=== PATIENT | female | born 1950 | race Caucasian/White ===

== ENCOUNTER 2023-07-23 10:46 | Outpatient (RCR) | payer MEDICARE, OTHER, SELFPAY | END 2023-07-23 23:59 | disposition home or self-care (01) | LOC: RPT 10:46 | PROVIDERS: ATTENDING PHYSICIAN Orthopaedic Surgery; PRIMARYCARE PHYSICIAN Family Medicine | DX: Z47.1 Aftercare following joint replacement surgery (principal); Z96.651 Presence of right artificial knee joint; Z73.6 Limitation of activities due to disability; R26.89 Other abnormalities of gait and mobility | CPT/HCPCS: 97010; 97110; 97162 ==

== ENCOUNTER 2023-08-26 13:58 | Outpatient (RCR) | payer MEDICARE, OTHER, SELFPAY | END 2023-08-26 23:59 | disposition home or self-care (01) | LOC: RPT 13:58 | PROVIDERS: ATTENDING PHYSICIAN Orthopaedic Surgery; PRIMARYCARE PHYSICIAN Family Medicine | DX: Z47.1 Aftercare following joint replacement surgery (principal); Z96.651 Presence of right artificial knee joint; Z73.6 Limitation of activities due to disability; R26.89 Other abnormalities of gait and mobility | CPT/HCPCS: 97010; 97110 ==

== ENCOUNTER → 2023-09-01 08:55 | Outpatient (REF) | payer MEDICARE, OTHER, SELFPAY ==
[2023-09-01 11:27] LABS: INR 2.33; PT 25.5 Sec (11.4-14.6)
== END ==
LOC: HWRCS 08:55
PROVIDERS: Internal Medicine Hematology & Oncology; ATTENDING PHYSICIAN Family Medicine
DX: I26.99 Other pulmonary embolism without acute cor pulmonale (principal)
CPT/HCPCS: 36415; 85610; 93306

== ENCOUNTER 2023-09-03 12:45 | Outpatient (RCR) | payer MEDICARE, OTHER, SELFPAY | END 2023-09-15 07:32 | disposition home or self-care (01) | LOC: RPT 12:45 | PROVIDERS: ATTENDING PHYSICIAN Orthopaedic Surgery; PRIMARYCARE PHYSICIAN Family Medicine | DX: Z47.1 Aftercare following joint replacement surgery (principal); Z73.6 Limitation of activities due to disability; R26.89 Other abnormalities of gait and mobility; M25.561 Pain in right knee; Z96.651 Presence of right artificial knee joint | CPT/HCPCS: 97010; 97110 ==

== ENCOUNTER → 2023-09-04 14:48 | Outpatient (REF) | payer MEDICARE, OTHER, SELFPAY | LOC: HWRAD 14:48 | PROVIDERS: ATTENDING PHYSICIAN Family Medicine; REFERRING PHYSICIAN Obstetrics & Gynecology | DX: Z12.31 Encounter for screening mammogram for malignant neoplasm of breast (principal); Z78.0 Asymptomatic menopausal state | CPT/HCPCS: 77063; 77067; 77080 ==

== ENCOUNTER → 2023-09-08 08:55 | Outpatient (REF) | payer MEDICARE, OTHER, SELFPAY ==
[2023-09-08 09:51] LABS: INR 2.59; PT 27.7 Sec (11.4-14.6)
== END ==
LOC: REG 08:55
PROVIDERS: ATTENDING PHYSICIAN Internal Medicine Hematology & Oncology
DX: I26.09 Other pulmonary embolism with acute cor pulmonale (principal)
CPT/HCPCS: 36415; 85610

== ENCOUNTER → 2023-09-15 08:46 | Outpatient (REF) | payer MEDICARE, OTHER, SELFPAY ==
[2023-09-15 09:27] LABS: PT 26.9 Sec (11.4-14.6)
== END ==
LOC: REG 08:46
PROVIDERS: ATTENDING PHYSICIAN Internal Medicine Hematology & Oncology; FAMILY PHYSICIAN Family Medicine
DX: I26.09 Other pulmonary embolism with acute cor pulmonale (principal)
CPT/HCPCS: 36415; 85610

== ENCOUNTER → 2023-09-22 13:59 | Outpatient (REF) | payer MEDICARE, OTHER, SELFPAY ==
[2023-09-22 14:56] LABS: INR 2.31; PT 25.2 Sec (11.4-14.6)
== END ==
LOC: REG 13:59
PROVIDERS: ATTENDING PHYSICIAN Internal Medicine Hematology & Oncology; FAMILY PHYSICIAN Family Medicine
DX: I26.09 Other pulmonary embolism with acute cor pulmonale (principal)
CPT/HCPCS: 36415; 85610

== ENCOUNTER → 2023-09-29 07:39 | Outpatient (REF) | payer MEDICARE, OTHER, SELFPAY ==
[2023-09-29 08:55] LABS: % Basophils 0.6 % (0-2); % Eosinophils 0.2 % (0-6); % Immature Granulocytes 0.2 % (0-0.5); % Lymphocytes 31.2 % (20.5-51.1); % Monocytes 8.5 % (1.7-9.3); % Neutrophils 59.3 % (42.2-75.2); Absolute Lymphocytes 1.6 10^3/uL (1.2-3.4); Absolute Monocytes 0.4 10^3/uL (0.1-0.6); Absolute Neutrophils 3.1 10^3/uL (1.4-6.5); Hematocrit 34.1 % (37.0-47.0); Hemoglobin 11.1 g/dL (12.0-16.0); Mean Corp Hgb Conc. 32.6 g/dL (33.0-37.0); Mean Corpuscular Hgb 29.4 pg (27.0-31.0); Mean Corpuscular Volume 90.5 fL (81.0-99.0); Mean Platelet Volume 9.4 fL (7.4-10.4); Nucleated Red Blood Cells % 0 %; Platelet Count 348 10^3/uL (130-400); Red Blood Cell Count 3.77 10^6/uL (4.20-5.40); Red Cell Dist. Width 13.5 % (11.5-14.5); White Blood Cell Count 5.2 10^3/uL (4.8-10.8)
[2023-09-29 09:04] LABS: ALT (SGPT) 15 U/L (0-35); AST (SGOT) 18 U/L (14-36); Albumin 4.4 g/dl (3.5-5.0); Alkaline Phosphatase 103 U/L (38-126); Blood Urea Nitrogen 14 mg/dl (7-17); Calcium 9.5 mg/dl (8.4-10.2); Carbon Dioxide 28 mmol/L (22-30); Chloride 105 mmol/L (98-107); Glucose 86 mg/dl (70-99); HDL Cholesterol 58 mg/dl; LDL Cholesterol, Calculated 75 mg/dl; Sodium 143 mmol/L (135-145); Total Bilirubin 0.3 mg/dl (0.2-1.3); Total Cholesterol 153 mg/dl (50-199); Total Protein 7.1 g/dl (6.3-8.2); Triglyceride 104 mg/dl (10-149); Very Low Density Lipoprotein 20 mg/dl (0-30); eGFR > 60.00
[2023-09-29 09:10] LABS: INR 2.45; PT 26.5 Sec (11.4-14.6)
[2023-09-29 09:32] LABS: TSH Reflex To Free T4 0.76 uIU/ml (0.47-4.68)
== END ==
LOC: REG 07:39
PROVIDERS: ATTENDING PHYSICIAN Internal Medicine Hematology & Oncology; FAMILY PHYSICIAN Family Medicine
DX: I26.09 Other pulmonary embolism with acute cor pulmonale (principal); I10 Essential (primary) hypertension; E78.00 Pure hypercholesterolemia, unspecified
CPT/HCPCS: 36415; 80053; 80061; 84443; 85025; 85610

== ENCOUNTER → 2023-10-06 08:55 | Outpatient (REF) | payer MEDICARE, OTHER, SELFPAY ==
[2023-10-06 09:56] LABS: PT 20.7 Sec (11.4-14.6)
== END ==
LOC: REG 08:55
PROVIDERS: ATTENDING PHYSICIAN Internal Medicine Hematology & Oncology; FAMILY PHYSICIAN Family Medicine; REFERRING PHYSICIAN Internal Medicine Cardiovascular Disease
DX: I26.09 Other pulmonary embolism with acute cor pulmonale (principal)
CPT/HCPCS: 36415; 85610

== ENCOUNTER → 2023-10-13 07:54 | Outpatient (REF) | payer MEDICARE, OTHER, SELFPAY ==
[2023-10-13 09:05] LABS: INR 2.58; PT 27.6 Sec (11.4-14.6)
== END ==
LOC: REG 07:54
PROVIDERS: ATTENDING PHYSICIAN Internal Medicine Hematology & Oncology; FAMILY PHYSICIAN Family Medicine; REFERRING PHYSICIAN Internal Medicine Cardiovascular Disease
DX: I26.09 Other pulmonary embolism with acute cor pulmonale (principal)
CPT/HCPCS: 36415; 85610

== ENCOUNTER → 2023-10-20 13:16 | Outpatient (REF) | payer MEDICARE, OTHER, SELFPAY ==
[2023-10-20 14:23] LABS: INR 1.93; PT 21.9 Sec (11.4-14.6)
== END ==
LOC: REG 13:16
PROVIDERS: ATTENDING PHYSICIAN Internal Medicine Hematology & Oncology; FAMILY PHYSICIAN Family Medicine
DX: I26.09 Other pulmonary embolism with acute cor pulmonale (principal)
CPT/HCPCS: 36415; 85610

== ENCOUNTER → 2023-10-27 13:13 | Outpatient (REF) | payer MEDICARE, OTHER, SELFPAY ==
[2023-10-27 14:17] LABS: INR 2.46; PT 26.6 Sec (11.4-14.6)
== END ==
LOC: REG 13:13
PROVIDERS: ATTENDING PHYSICIAN Internal Medicine Hematology & Oncology; FAMILY PHYSICIAN Family Medicine; REFERRING PHYSICIAN Internal Medicine Cardiovascular Disease
DX: I26.09 Other pulmonary embolism with acute cor pulmonale (principal)
CPT/HCPCS: 36415; 85610

== ENCOUNTER → 2023-10-28 13:29 | Outpatient (REF) | payer MEDICARE, OTHER, SELFPAY ==
[2023-10-28 15:03] LABS: D-Dimer 3.89 ug/mlFEU (0.00-0.50)
== END ==
LOC: REG 13:29
PROVIDERS: ATTENDING PHYSICIAN Internal Medicine Hematology & Oncology; FAMILY PHYSICIAN Family Medicine; REFERRING PHYSICIAN Internal Medicine Cardiovascular Disease
DX: I26.09 Other pulmonary embolism with acute cor pulmonale (principal); R76.0 Raised antibody titer; D68.69 Other thrombophilia
CPT/HCPCS: 36415; 85379

== ENCOUNTER → 2023-10-31 11:15 | Outpatient (REF) | payer MEDICARE, OTHER, SELFPAY | LOC: HWRAD 11:15 | PROVIDERS: ATTENDING PHYSICIAN Family Medicine | DX: N28.9 Disorder of kidney and ureter, unspecified (principal) | CPT/HCPCS: 76770 ==

== ENCOUNTER → 2023-11-03 13:50 | Outpatient (REF) | payer MEDICARE, OTHER, SELFPAY ==
[2023-11-03 16:01] LABS: INR 2.11; PT 23.5 Sec (11.4-14.6)
== END ==
LOC: REG 13:50
PROVIDERS: ATTENDING PHYSICIAN Internal Medicine Hematology & Oncology; FAMILY PHYSICIAN Family Medicine; REFERRING PHYSICIAN Internal Medicine Cardiovascular Disease
DX: I26.09 Other pulmonary embolism with acute cor pulmonale (principal)
CPT/HCPCS: 36415; 85610

== ENCOUNTER → 2023-11-10 08:01 | Outpatient (REF) | payer MEDICARE, OTHER, SELFPAY ==
[2023-11-10 09:06] LABS: INR 2.58; PT 27.6 Sec (11.4-14.6)
== END ==
LOC: REG 08:01
PROVIDERS: ATTENDING PHYSICIAN Internal Medicine Hematology & Oncology; FAMILY PHYSICIAN Family Medicine; REFERRING PHYSICIAN Internal Medicine Cardiovascular Disease
DX: I26.09 Other pulmonary embolism with acute cor pulmonale (principal)
CPT/HCPCS: 36415; 85610

== ENCOUNTER → 2023-11-13 07:30 | Outpatient (REF) | payer MEDICARE, OTHER, SELFPAY | LOC: RAD 07:30 | PROVIDERS: ATTENDING PHYSICIAN Internal Medicine Hematology & Oncology; FAMILY PHYSICIAN Family Medicine; OTHER PHYSICIAN Internal Medicine Cardiovascular Disease | DX: I26.99 Other pulmonary embolism without acute cor pulmonale (principal); R76.0 Raised antibody titer; D68.69 Other thrombophilia | CPT/HCPCS: 71275; Q9967 ==

== ENCOUNTER → 2023-11-17 08:09 | Outpatient (REF) | payer MEDICARE, OTHER, SELFPAY ==
[2023-11-17 09:19] LABS: INR 2.87
== END ==
LOC: REG 08:09
PROVIDERS: ATTENDING PHYSICIAN Internal Medicine Hematology & Oncology; REFERRING PHYSICIAN Family Medicine
DX: I26.09 Other pulmonary embolism with acute cor pulmonale (principal)
CPT/HCPCS: 36415; 85610

== ENCOUNTER → 2023-12-02 12:16 | Outpatient (REF) | payer MEDICARE, OTHER, SELFPAY ==
[2023-12-02 14:00] LABS: D-Dimer 2.77 ug/mlFEU (0.00-0.50)
[2023-12-05 01:57] LABS: Beta-2-Glycoprotein I Ab. IgG <10 SGU (<=20); Beta-2-Glycoprotein I Ab. IgM <10 SMU (<=20)
[2023-12-05 08:40] LABS: Cardiolipin IgA Antibody <10 APL (<=11); Cardiolipin IgM Antibody <10 MPL (<=12); Cardiolipin Igg Antibody <10 GPL (<=14)
== END ==
LOC: REG 12:16
PROVIDERS: ATTENDING PHYSICIAN Internal Medicine Hematology & Oncology; FAMILY PHYSICIAN Family Medicine; REFERRING PHYSICIAN Internal Medicine Cardiovascular Disease
DX: D68.51 Activated protein C resistance (principal); D68.52 Prothrombin gene mutation; R76.0 Raised antibody titer; D68.69 Other thrombophilia; I26.99 Other pulmonary embolism without acute cor pulmonale; I10 Essential (primary) hypertension; I82.91 Chronic embolism and thrombosis of unspecified vein
CPT/HCPCS: 36415; 81240; 81241; 85300; 85379; 85610; 85613; 85730; 86146; 86147

== ENCOUNTER → 2024-01-15 15:44 | Outpatient (REF) | payer MEDICARE, OTHER, SELFPAY | LOC: PAVMRI 15:44 | PROVIDERS: ATTENDING PHYSICIAN Psychiatry & Neurology Neurology; FAMILY PHYSICIAN Family Medicine | DX: M54.50 Low back pain, unspecified (principal); M54.17 Radiculopathy, lumbosacral region | CPT/HCPCS: 72148 ==

== ENCOUNTER → 2024-01-22 12:18 | Outpatient (REF) | payer MEDICARE, OTHER, SELFPAY | LOC: PAVMRI 12:18 | PROVIDERS: ATTENDING PHYSICIAN Psychiatry & Neurology Neurology; FAMILY PHYSICIAN Family Medicine | DX: G35 Multiple sclerosis (principal) | CPT/HCPCS: 70553; A9575 ==

== ENCOUNTER → 2024-01-26 08:09 | Outpatient (REF) | payer MEDICARE, OTHER, SELFPAY | LOC: RCS 08:09 | PROVIDERS: ATTENDING PHYSICIAN Internal Medicine Cardiovascular Disease; FAMILY PHYSICIAN Family Medicine | DX: R06.09 Other forms of dyspnea (principal); I26.99 Other pulmonary embolism without acute cor pulmonale | CPT/HCPCS: 93306 ==

== ENCOUNTER → 2024-04-05 04:00 | Outpatient (REF) | payer MEDICARE, OTHER, SELFPAY | LOC: DHSLP 04:00 | PROVIDERS: ATTENDING PHYSICIAN Internal Medicine Critical Care Medicine; FAMILY PHYSICIAN Family Medicine | DX: G47.19 Other hypersomnia (principal); R06.83 Snoring | CPT/HCPCS: 95800 ==

== ENCOUNTER 2024-06-19 15:03 | Emergency (ER) | payer MEDICARE, OTHER, SELFPAY ==
[2024-06-19 15:14] VITALS: BP 159/89; BMI 38.4
--- NOTE | 2024-06-19 15:46 | ED.GENMED ---
History of Present Illness
<Jackie Mansfield CHICKEN BUYER - Last Filed: 06/21/24 16:54>
General
Chief Complaint: Blood Pressure Problem
Source: patient
Exam Limitations: none
Time Seen by Provider: 06/19/24 15:14
Nursing documentation reviewed up to this point in time: agreed with
History of Present Illness
History of Present Illness:
73 yo female w h/o HTN, GERD, PE 05/2023, no longer on anticoagulant, presents for high blood pressure, headache.
Recent sinus infection, finished 10 days of Augmentin 11 days ago, felt no better, PCP started her on Prednisone taper, took first dose 50 mg today
Went food shopping, came home, felt 'spacey weird,' laid down for an hour, woke with mid chest non radiating chest tightness 8/10 and 'my heart was racing,' episode lasted an hour and slowly dissipated to now with CP 4/10 and heart not racing but
feels 'a little jitter' she feels may be from prednisone.
Headache '6/10' 'like a band around my head just like I used to get when my blood pressure was high,' checked her BP at home: 197/96, states her baseline is 135/80
EMS reports BP 196/95, 172/92, 174/76
Denies n/v/d/c. Denies weakness or numbness in extremities.
Past History
<Jackie Mansfield CHICKEN BUYER - Last Filed: 06/21/24 16:54>
Past History
ED Past Medical History: GERD, HTN, Psychiatric (Anxiety, she has been prescribed medication to take it such as Cymbalta and Prozac but she does not like to take them so she takes nothing) and Other (MS)
ED Past Surgical History: Cholecystectomy, Orthopedic and Other (Sinus)
Social History
Tobacco: Non-smoker
Alcohol: None
Drug: None
Living: alone
Review of Systems
<Jackie V. Day, CHICKEN BUYER - Last Filed: 06/21/24 16:54>
Review of Systems
Allergies reviewed?: Yes
All Other Systems: ROS reviewed and negative except as documented in HPI and ROS
Constitutional: Denies fever or fatigue
Respiratory: Denies trouble breathing
Cardiac: Reports chest pain and palpitations; Denies diaphoresis or syncope
ABD/GI: Denies abdominal pain, nausea, vomiting or diarrhea
: Reports no symptoms
Musculoskeletal: Reports no symptoms; Denies edema
Skin: Reports no symptoms
Neurological: Reports headache; Denies dizzy, weakness or numbness
Phy Exam
<Jackie Mansfield, CHICK[employer] BUYER - Last Filed: 06/21/24 16:54>
Physical Exam
Physical Exam:
GENERAL: No acute distress. A&Ox3.
CONSTITUTIONAL: Afebrile.
EYES: clear, conjunctivae normal
ENMT: moist mucus membranes, Pharynx nl
RESPIRATORY: Regular respirations, nonlabored, lungs clear.
CARDIOVASCULAR: Regular rate and rhythm, no murmurs, no rubs.
GI: Soft, nontender, normal BS
MUSCULOSKELETAL: Moves with ease. Well perfused.
SKIN: Warm, dry, pink
PSYCH: Normal mood and affect. Well kept, interactive and appropriate
NEUROLOGIC: Awake, alert and oriented. Speech clear. No focal neurological deficits. Ambulates well with steady gait
Course
<Jackie Mansfield, CHICK[employer] BUYER - Last Filed: 06/21/24 16:54>
Orders/Labs/Results
Orders:
Orders
06/19/24 15:37
Electrocardiogram (*1) Urgent
Reason for Study: Chest Pain
EKG- Treatment ONCE
06/19/24 15:51
Complete Blood Count/With Diff Urgent
Comprehensive Metabolic Panel Urgent
D-Dimer Urgent
Troponin I Urgent
06/19/24 16:20
CT Chest Pe Study Urgent
Comment:
Reason For Exam: chest pain elevated dimer, hx PE
06/19/24 17:07
Acetaminophen [Tylenol] 1,000 mg PO NOW STA
Abnormal Lab Results
06/19/24
15:51
WBC 4.2 L 10^3/uL
(4.8-10.8)
RBC 3.92 L 10^6/uL
(4.20-5.40)
Hct 36.4 L %
(37.0-47.0)
Absolute Lymphs (auto) 0.6 L 10^3/uL
(1.2-3.4)
Immature Gran % 1.0 H %
(0-0.5)
Neutrophils % 81.9 H %
(42.2-75.2)
Lymphocytes % 13.8 L %
(20.5-51.1)
D-Dimer 1.19 H ug/mlFEU
(0.00-0.50)
Glucose 168 H mg/dl
(70-99)
06/19/24 15:51
06/19/24 15:51
Vital Signs
Initial and Last Documented VS:
Initial Vital Signs
Temp Pulse Resp BP Pulse Ox
98.6 F 105 20 159/89 98
06/19/24 15:14 06/19/24 15:14 06/19/24 15:14 06/19/24 15:14 06/19/24 15:14
Last Documented Vital Signs
Temp Pulse Resp BP Pulse Ox
98.6 F 92 17 136/75 98
06/19/24 15:14 06/19/24 19:00 06/19/24 19:00 06/19/24 19:00 06/19/24 19:00
<Napoleon Tian MD - Last Filed: 06/19/24 19:05>
Orders/Labs/Results
Orders:
Orders
06/19/24 15:37
Electrocardiogram (*1) Urgent
Reason for Study: Chest Pain
EKG- Treatment ONCE
06/19/24 15:51
Complete Blood Count/With Diff Urgent
Comprehensive Metabolic Panel Urgent
D-Dimer Urgent
Troponin I Urgent
06/19/24 16:20
CT Chest Pe Study Urgent
Comment:
Reason For Exam: chest pain elevated dimer, hx PE
06/19/24 17:07
Acetaminophen [Tylenol] 1,000 mg PO NOW STA
Abnormal Lab Results
06/19/24
15:51
WBC 4.2 L 10^3/uL
(4.8-10.8)
RBC 3.92 L 10^6/uL
(4.20-5.40)
Hct 36.4 L %
(37.0-47.0)
Absolute Lymphs (auto) 0.6 L 10^3/uL
(1.2-3.4)
Immature Gran % 1.0 H %
(0-0.5)
Neutrophils % 81.9 H %
(42.2-75.2)
Lymphocytes % 13.8 L %
(20.5-51.1)
D-Dimer 1.19 H ug/mlFEU
(0.00-0.50)
Glucose 168 H mg/dl
(70-99)
06/19/24 15:51
06/19/24 15:51
Vital Signs
Initial and Last Documented VS:
Initial Vital Signs
Temp Pulse Resp BP Pulse Ox
98.6 F 105 20 159/89 98
06/19/24 15:14 06/19/24 15:14 06/19/24 15:14 06/19/24 15:14 06/19/24 15:14
Last Documented Vital Signs
Temp Pulse Resp BP Pulse Ox
98.6 F 92 17 136/75 98
06/19/24 15:14 06/19/24 19:00 06/19/24 19:00 06/19/24 19:00 06/19/24 19:00
<Jackie Mansfield NP - Last Filed: 06/21/24 16:54>
MDM/Problems Addressed
Differential Diagnosis Includes:
high blood pressure, hypertensive urgency
MDM/Problems Addressed:
73 yo female w h/o HTN, GERD, PE 05/2023, no longer on anticoagulant, presents for high blood pressure, headache.
Recent sinus infection, finished 10 days of Augmentin 11 days ago, felt no better, PCP started her on Prednisone taper, took first dose 50 mg today
Went food shopping, came home, felt 'spacey weird,' laid down for an hour, woke with mid chest non radiating chest tightness 8/10 and 'my heart was racing,' episode lasted an hour and slowly dissipated to now with CP 4/10 and heart not racing but
feels 'a little jitter' she feels may be from prednisone.
Headache '6/10' 'like a band around my head just like I used to get when my blood pressure was high,' checked her BP at home: 197/96, states her baseline is 135/80
EMS reports BP 196/95, 172/92, 174/76
Denies n/v/d/c. Denies weakness or numbness in extremities.
4:00 p.m.
EKG NSR
BP 147/69
CBC unremarkable
CMP unremarkable
D dimer mildly elevated 1.19 (trending down from 11/2023, obviously more than 6 weeks) Will get PE CT study
Troponin WNL
5:[address]
BP142/81 Headache remains, similar to her previous headaches, Tylenol ordered
Normal neuro exam. No indication for head CT.
Case discussed with Dr. Tian who will assume care from this point
Chronic conditions affecting care: HTN
<Jackie Mansfield CH[employer] BUYER - Last Filed: 06/21/24 16:54>
*Critical Care Note
Total Time (30-74mins, 75-104mins- exclusive of procedures): Not Applicable
ED Attending Note
<Jackie Mansfield CH[employer] BU[employer]ER - Last Filed: 06/21/24 16:54>
-
Portions of this chart may have been created with voice recognition software.� Occasional wrong word or��sound alike� substitutions may have occurred due to the inherent limitations of voice recognition software.
<Napoleon Tian MD - Last Filed: 06/19/24 19:05>
ED Attending Note
Patient seen and examined by attending physician: Yes
I performed the substantive portion of visit, reviewed & personally made and approve the management plan that is documented in note by myself or DRE.: Yes
ED Attending Note:
73-year-old female here primarily with concerns for her blood pressure and an episode of racing heart. She has had ongoing nasal congestion and sinus issues recurrent antibiotics. Started steroids this morning. Has headaches but gets headaches
daily and this is nothing unusual. No new acute neurologic symptoms. This afternoon she had sudden heart racing that lasted about an hour. She checked her blood pressure which was elevated in the 190/90 range. Became upset and nervous and
presents for evaluation. She feels better at this time. She does have a headache that is typical for her.
Clinically she is in no distress. Lungs are clear and equal. Heart regular rate and rhythm no murmur. Abdomen nontender. She is warm and dry. She is pleased for using well.
We were awaiting her CT scan which is unremarkable. She was given a copy of the CT report for an exophytic lesion to the left kidney. She is already aware of this. She is stable for discharge.
Discharge Plan
Departure
Patient Disposition: Home (Routine Discharge)
Date of Disposition: 06/19/24
Time of Disposition: 19:04
Patient with high blood pressure during this ER visit?: Yes
Discharge Problem:
Palpitations/heart racing, History of PE, Hypertension, Lesion left kidney
Instructions: Palpitations ED, BLOOD PRESSURE
Prescriptions:
No Action
alprazolam 0.25 MG tablet
0.125 mg PO TID
artificial tear([id number]) [GenTeal Tears Moderate] 15 ML drops
1 drp BOTH EYES DAILYPRN PRN (Reason: dry eyes)
ascorbic acid (vitamin C) [Vitamin C] 500 MG tablet
500 mg PO QPM
lisinopril 20 mg Tablet
20 mg PO BID Qty: 60 0RF
prednisone 10 mg Tablet
50 mg PO .TAPER
Patient Comments:
06/19/24: started today, to take 5 tabs for 2 days, 4 for 2 days, 3 for 2 days, 2 for 2 days, 1 for 2 days
Theragen Tablet
1 tab PO QPM
amlodipine 2.5 mg Tablet
2.5 mg PO HS
aspirin 81 mg Tablet,Delayed Release (Dr/Ec)
81 mg PO DAILY
acetaminophen [Tylenol Arthritis Pain] 650 mg Tablet Extended Release
1,300 mg PO Q12H
alprazolam 0.25 mg Tablet
0.25 mg PO HSPRN PRN (Reason: anxiety)
meclizine 25 mg Tablet
25 mg PO DAILYPRN PRN (Reason: vertigo)
omeprazole magnesium [Prilosec OTC] 20 mg Tablet,Delayed Release (Dr/Ec)
20 mg PO DAILY
Visbiome 112.5 billion cell Capsule
1 cap PO QPM
cholecalciferol (vitamin D3) [Vitamin D3] 50 mcg (2,000 unit) Tablet
50 mcg PO DAILY
Retaine MGD (PF) 0.5-0.5 % Dropperette
1 drp ophthalmic (eye) BID
Rx Instructions:
both eyes
famotidine 20 MG tablet
20 mg PO QPM
Referrals:
UNKNOWN - PT DOES,NOT KNOW [Unknown Provider] -
Activity Restrictions/Additional Instructions:
Follow-up with your primary physician and berry picker
Monitor your blood pressure
Return with unusual headache fever vomiting persistent chest pain shortness of breath or any other concerning symptoms
Follow-up the CAT scan of your kidney with your primary physician
Interventions
Interventions:
*Risk Screen - Suicide Last Done: 06/19/24 15:37
*General Assessment Last Done: 06/19/24 15:37
*Neglect/Abuse Screening Last Done: 06/19/24 15:37
ED- Fall Risk Assessment Last Done: 06/19/24 15:37
*Nursing Disposition Last Done: 06/19/24 19:29
ED- Cardiac Assessment Last Done: 06/19/24 15:37
ED- Neurological Assessment Last Done: 06/19/24 15:37
ED- Pulmonary Assessment Last Done: 06/19/24 15:37
Discharge Date and Time
Discharge Date/Time: 06/19/24 19:30
Print Language: [place] CITIZEN
[2024-06-19 16:03] LABS: % Basophils 0.2 % (0-2); % Lymphocytes 13.8 % (20.5-51.1); % Monocytes 3.1 % (1.7-9.3); % Neutrophils 81.9 % (42.2-75.2); Absolute Lymphocytes 0.6 10^3/uL (1.2-3.4); Absolute Monocytes 0.1 10^3/uL (0.1-0.6); Absolute Neutrophils 3.5 10^3/uL (1.4-6.5); Hematocrit 36.4 % (37.0-47.0); Hemoglobin 12.1 g/dL (12.0-16.0); Mean Corp Hgb Conc. 33.2 g/dL (33.0-37.0); Mean Corpuscular Hgb 30.9 pg (27.0-31.0); Mean Corpuscular Volume 92.9 fL (81.0-99.0); Mean Platelet Volume 8.7 fL (7.4-10.4); Nucleated Red Blood Cells % 0 %; Platelet Count 310 10^3/uL (130-400); Red Blood Cell Count 3.92 10^6/uL (4.20-5.40); White Blood Cell Count 4.2 10^3/uL (4.8-10.8)
[2024-06-19 16:18] LABS: D-Dimer 1.19 ug/mlFEU (0.00-0.50)
[2024-06-19 16:22] LABS: ALT (SGPT) 31 U/L (0-35); AST (SGOT) 32 U/L (14-36); Albumin 4.7 g/dl (3.5-5.0); Alkaline Phosphatase 75 U/L (38-126); Blood Urea Nitrogen 14 mg/dl (7-17); Calcium 9.7 mg/dl (8.4-10.2); Carbon Dioxide 23 mmol/L (22-30); Chloride 106 mmol/L (98-107); Estimated Creatinine Clearance 79 ml/min; Glucose 168 mg/dl (70-99); Potassium 4.1 mmol/L (3.5-5.1); Sodium 144 mmol/L (135-145); Total Bilirubin 0.2 mg/dl (0.2-1.3); Total Protein 7.3 g/dl (6.3-8.2); eGFR > 60.00
[2024-06-19 16:28] LABS: Troponin I < 0.012 ng/ml
[2024-06-19 16:44] VITALS: BP 153/85
[2024-06-19 17:00] VITALS: BP 142/81
[2024-06-19 17:36] VITALS: BP 152/76
[2024-06-19 18:00] VITALS: BP 139/75
[2024-06-19] MEDS: TYLENOL 1000 MG PO (18:22)
[2024-06-19 19:00] VITALS: BP 136/75
== END 2024-06-19 19:30 | disposition home or self-care (01) ==
LOC: EMR 15:03
PROVIDERS: Registered Nurse; EMERGENCY PHYSICIAN Emergency Medicine; FAMILY PHYSICIAN Family Medicine
DX: R00.2 Palpitations (principal); N28.9 Disorder of kidney and ureter, unspecified; I10 Essential (primary) hypertension; Z86.711 Personal history of pulmonary embolism; K21.9 Gastro-esophageal reflux disease without esophagitis
CPT/HCPCS: 99285; 71275; 80053; 84484; 85025; 85379; 93005; Q9967

== ENCOUNTER → 2024-06-26 09:40 | Outpatient (REF) | payer MEDICARE, OTHER, SELFPAY ==
[2024-06-26 11:11] LABS: TSH Reflex To Free T4 1.06 uIU/ml (0.47-4.68)
[2024-06-28 13:21] LABS: Rheumatoid Agglutinin Less Than 10 IU (<10 IU)
== END ==
LOC: REG 09:40
PROVIDERS: ATTENDING PHYSICIAN Family Medicine; REFERRING PHYSICIAN Internal Medicine Cardiovascular Disease
DX: R63.5 Abnormal weight gain (principal); M79.7 Fibromyalgia; M17.12 Unilateral primary osteoarthritis, left knee; M25.50 Pain in unspecified joint; I10 Essential (primary) hypertension
CPT/HCPCS: 36415; 84443; 86140; 86430

== ENCOUNTER → 2024-07-06 11:28 | Outpatient (REF) | payer MEDICARE, OTHER, SELFPAY | LOC: HWRAD 11:28 | PROVIDERS: ATTENDING PHYSICIAN Otolaryngology; FAMILY PHYSICIAN Family Medicine; REFERRING PHYSICIAN Internal Medicine Cardiovascular Disease | DX: J34.2 Deviated nasal septum (principal); J32.2 Chronic ethmoidal sinusitis | CPT/HCPCS: 70486 ==

== ENCOUNTER → 2024-08-17 15:48 | Outpatient (REF) | payer MEDICARE, OTHER, SELFPAY ==
[2024-08-17 16:50] LABS: APTT 29.9 Sec (23.4-35.0); INR 0.96; PT 13.1 Sec (11.4-14.6)
== END ==
LOC: REG 15:48
PROVIDERS: ATTENDING PHYSICIAN Internal Medicine Hematology & Oncology; FAMILY PHYSICIAN Family Medicine; OTHER PHYSICIAN Otolaryngology
DX: R76.0 Raised antibody titer (principal); D68.69 Other thrombophilia; I26.99 Other pulmonary embolism without acute cor pulmonale; R79.1 Abnormal coagulation profile
CPT/HCPCS: 36415; 85610; 85730

== ENCOUNTER 2024-08-19 06:09 | Day surgery (SDC) | payer MEDICARE, OTHER, SELFPAY ==
[2024-08-19] VITALS (7 sets, daily range): BP systolic 135–169; BP diastolic 64–79
[2024-08-19] MEDS: NORMOSOL-R/PLASMALYTE-A 1000 IV (07:04)
[2024-08-19] MEDS: EMEND 40 MG PO (07:07)
== END 2024-08-19 10:25 | disposition home or self-care (01) ==
LOC: SDS 06:09
PROVIDERS: ATTENDING PHYSICIAN Otolaryngology
DX: J32.9 Chronic sinusitis, unspecified (principal); J34.2 Deviated nasal septum
CPT/HCPCS: 31254; 30520; 88311

== ENCOUNTER → 2024-09-07 10:55 | Outpatient (REF) | payer MEDICARE, OTHER, SELFPAY | LOC: HWWDC 10:55 | PROVIDERS: ATTENDING PHYSICIAN Family Medicine; REFERRING PHYSICIAN Obstetrics & Gynecology | DX: Z12.31 Encounter for screening mammogram for malignant neoplasm of breast (principal) | CPT/HCPCS: 77063; 77067 ==

== ENCOUNTER → 2024-09-18 08:03 | Outpatient (REF) | payer MEDICARE, OTHER, SELFPAY ==
[2024-09-18 09:47] LABS: % Basophils 0.6 % (0-2); % Immature Granulocytes 0.6 % (0-0.5); % Lymphocytes 25.3 % (20.5-51.1); % Monocytes 8.3 % (1.7-9.3); % Neutrophils 65.2 % (42.2-75.2); Absolute Lymphocytes 1.7 10^3/uL (1.2-3.4); Absolute Monocytes 0.6 10^3/uL (0.1-0.6); Absolute Neutrophils 4.5 10^3/uL (1.4-6.5); Hematocrit 37.6 % (37.0-47.0); Hemoglobin 12.5 g/dL (12.0-16.0); Mean Corp Hgb Conc. 33.2 g/dL (33.0-37.0); Mean Corpuscular Hgb 30.6 pg (27.0-31.0); Mean Corpuscular Volume 91.9 fL (81.0-99.0); Mean Platelet Volume 8.7 fL (7.4-10.4); Nucleated Red Blood Cells % 0 %; Platelet Count 367 10^3/uL (130-400); Red Blood Cell Count 4.09 10^6/uL (4.20-5.40); Red Cell Dist. Width 12.6 % (11.5-14.5); White Blood Cell Count 6.9 10^3/uL (4.8-10.8)
[2024-09-18 10:26] LABS: ALT (SGPT) 21 U/L (0-35); AST (SGOT) 22 U/L (14-36); Albumin 4.3 g/dl (3.5-5.0); Alkaline Phosphatase 132 U/L (38-126); Blood Urea Nitrogen 11 mg/dl (7-17); Calcium 9.9 mg/dl (8.4-10.2); Carbon Dioxide 28 mmol/L (22-30); Chloride 102 mmol/L (98-107); Glucose 92 mg/dl (70-99); HDL Cholesterol 51 mg/dl; LDL Cholesterol, Calculated 90 mg/dl; Potassium 4.7 mmol/L (3.5-5.1); Sodium 140 mmol/L (135-145); Total Bilirubin 0.7 mg/dl (0.2-1.3); Total Cholesterol 179 mg/dl (50-199); Total Protein 7.1 g/dl (6.3-8.2); Triglyceride 192 mg/dl (10-149); Very Low Density Lipoprotein 38 mg/dl (0-30); eGFR > 60.00
[2024-09-18 10:45] LABS: TSH Reflex To Free T4 0.58 uIU/ml (0.47-4.68)
== END ==
LOC: REG 08:03
PROVIDERS: ATTENDING PHYSICIAN Family Medicine
DX: I10 Essential (primary) hypertension (principal); E78.00 Pure hypercholesterolemia, unspecified
CPT/HCPCS: 36415; 80053; 80061; 84443; 85025

== ENCOUNTER → 2024-10-09 07:10 | Outpatient (REF) | payer MEDICARE, OTHER, SELFPAY ==
[2024-10-09 08:13] LABS: % Basophils 0.7 % (0-2); % Immature Granulocytes 0.3 % (0-0.5); % Monocytes 10.5 % (1.7-9.3); % Neutrophils 58.5 % (42.2-75.2); Absolute Lymphocytes 1.8 10^3/uL (1.2-3.4); Absolute Monocytes 0.6 10^3/uL (0.1-0.6); Absolute Neutrophils 3.5 10^3/uL (1.4-6.5); Hematocrit 34.8 % (37.0-47.0); Hemoglobin 11.4 g/dL (12.0-16.0); Mean Corp Hgb Conc. 32.8 g/dL (33.0-37.0); Mean Corpuscular Hgb 30.6 pg (27.0-31.0); Mean Corpuscular Volume 93.5 fL (81.0-99.0); Mean Platelet Volume 8.8 fL (7.4-10.4); Nucleated Red Blood Cells % 0 %; Platelet Count 339 10^3/uL (130-400); Red Blood Cell Count 3.72 10^6/uL (4.20-5.40); Red Cell Dist. Width 13.2 % (11.5-14.5)
[2024-10-09 08:37] LABS: ALT (SGPT) 22 U/L (0-35); AST (SGOT) 20 U/L (14-36); Albumin 4.2 g/dl (3.5-5.0); Alkaline Phosphatase 103 U/L (38-126); Blood Urea Nitrogen 15 mg/dl (7-17); Calcium 9.7 mg/dl (8.4-10.2); Carbon Dioxide 26 mmol/L (22-30); Chloride 105 mmol/L (98-107); Glucose 86 mg/dl (70-99); Potassium 4.1 mmol/L (3.5-5.1); Sodium 139 mmol/L (135-145); Total Bilirubin 0.4 mg/dl (0.2-1.3); Total Protein 6.8 g/dl (6.3-8.2); eGFR > 60.00
[2024-10-09 08:39] LABS: C-Reactive Protein < 5.00 mg/L (0.0-10.00)
[2024-10-12 01:29] LABS: ANA, IgG Reflex to HEp-2 None Detected (None Detected)
== END ==
LOC: REG 07:10
PROVIDERS: ATTENDING PHYSICIAN Family Medicine; REFERRING PHYSICIAN Internal Medicine Rheumatology
DX: R79.82 Elevated C-reactive protein (CRP) (principal); M25.50 Pain in unspecified joint; I10 Essential (primary) hypertension
CPT/HCPCS: 36415; 80053; 85025; 86038; 86140

== ENCOUNTER → 2024-11-06 11:15 | Outpatient (REF) | payer MEDICARE, OTHER, SELFPAY | LOC: PAVMRI 11:15 | PROVIDERS: ATTENDING PHYSICIAN Orthopaedic Surgery; FAMILY PHYSICIAN Family Medicine | DX: S46.011A Strain of muscle(s) and tendon(s) of the rotator cuff of right shoulder, initial encounter (principal) | CPT/HCPCS: 73221 ==

== ENCOUNTER → 2024-11-11 13:44 | Outpatient (REF) | payer MEDICARE, OTHER, SELFPAY ==
[2024-11-11 15:42] LABS: Creatine Phosphokinase 44 U/L (30-135)
[2024-11-11 16:00] LABS: Vitamin D, 25-OH*** 60.7 ng/mL (30-80)
[2024-11-11 16:49] LABS: Folate > 20.0 ng/ml (2.76-20); Vitamin B12 773 pg/ml (239-931)
[2024-11-13 19:18] LABS: CCP Antibody IgG/IgA 4 Units (0-19)
== END ==
LOC: RAD 13:44
PROVIDERS: ATTENDING PHYSICIAN Internal Medicine Rheumatology; FAMILY PHYSICIAN Family Medicine
DX: M79.7 Fibromyalgia (principal); M25.50 Pain in unspecified joint; I26.99 Other pulmonary embolism without acute cor pulmonale
CPT/HCPCS: 36415; 73120; 82306; 82550; 82607; 82746; 86200

== ENCOUNTER → 2024-12-29 07:16 | Outpatient (REF) | payer MEDICARE, OTHER, SELFPAY | LOC: HWRCS 07:16 | PROVIDERS: ATTENDING PHYSICIAN Internal Medicine Cardiovascular Disease; FAMILY PHYSICIAN Family Medicine | DX: R06.02 Shortness of breath (principal) | CPT/HCPCS: 93306 ==

== ENCOUNTER → 2025-01-12 07:07 | Outpatient (REF) | payer MEDICARE, OTHER, SELFPAY | LOC: RCS 07:07 | PROVIDERS: ATTENDING PHYSICIAN Internal Medicine Cardiovascular Disease; FAMILY PHYSICIAN Family Medicine | DX: R06.02 Shortness of breath (principal); R07.89 Other chest pain | CPT/HCPCS: 78452; 93017; A9500; J2785 ==

== ENCOUNTER → 2025-02-15 13:37 | Outpatient (REF) | payer MEDICARE, OTHER, SELFPAY ==
[2025-02-15 15:19] LABS: Hematocrit 33.6 % (37.0-47.0); Hemoglobin 11.7 g/dL (12.0-16.0); Mean Corp Hgb Conc. 34.8 g/dL (33.0-37.0); Mean Corpuscular Volume 91.8 fL (81.0-99.0); Nucleated Red Blood Cells % 0 %; Platelet Count 317 10^3/uL (130-400); Red Cell Dist. Width 12.9 % (11.5-14.5)
[2025-02-15 15:45] LABS: Iron 55 ug/dl (37-170)
[2025-02-15 15:56] LABS: Total Iron Binding Capacity 402 ug/dl (265-497)
[2025-02-15 16:20] LABS: Ferritin 39.7 ng/ml (11.1-264.0)
== END ==
LOC: REG 13:37
PROVIDERS: ATTENDING PHYSICIAN Internal Medicine Hematology & Oncology; FAMILY PHYSICIAN Family Medicine
DX: R76.0 Raised antibody titer (principal); D68.69 Other thrombophilia; I26.99 Other pulmonary embolism without acute cor pulmonale; R79.89 Other specified abnormal findings of blood chemistry
CPT/HCPCS: 36415; 82728; 82784; 83540; 83550; 85025

== ENCOUNTER → 2025-02-28 13:10 | Outpatient (REF) | payer MEDICARE, OTHER, SELFPAY | LOC: HWRAD 13:10 | PROVIDERS: ATTENDING PHYSICIAN Obstetrics & Gynecology; FAMILY PHYSICIAN Family Medicine | DX: R10.2 Pelvic and perineal pain (principal) | CPT/HCPCS: 76830; 76856 ==

== ENCOUNTER → 2025-03-01 12:12 | Outpatient (REF) | payer MEDICARE, OTHER, SELFPAY | LOC: EMG 12:12 | PROVIDERS: ATTENDING PHYSICIAN Orthopaedic Surgery; FAMILY PHYSICIAN Family Medicine | DX: R20.0 Anesthesia of skin (principal); G56.03 Carpal tunnel syndrome, bilateral upper limbs | CPT/HCPCS: 95886; 95911 ==

== ENCOUNTER → 2025-04-12 07:39 | Outpatient (REF) | payer MEDICARE, OTHER, SELFPAY ==
[2025-04-12 09:00] LABS: Hematocrit 33.7 % (37.0-47.0); Hemoglobin 11.6 g/dL (12.0-16.0); Mean Corp Hgb Conc. 34.4 g/dL (33.0-37.0); Mean Corpuscular Volume 93.6 fL (81.0-99.0); Nucleated Red Blood Cells % 0 %; Platelet Count 280 10^3/uL (130-400); Red Cell Dist. Width 13.2 % (11.5-14.5)
[2025-04-12 09:32] LABS: D-Dimer 1.42 ug/mlFEU (0.00-0.50)
== END ==
LOC: REG 07:39
PROVIDERS: ATTENDING PHYSICIAN Internal Medicine Hematology & Oncology; FAMILY PHYSICIAN Family Medicine
DX: R76.0 Raised antibody titer (principal); D68.69 Other thrombophilia; I26.99 Other pulmonary embolism without acute cor pulmonale
CPT/HCPCS: 36415; 85025; 85379

== ENCOUNTER → 2025-04-14 04:37 | Outpatient (REF) | payer MEDICARE, OTHER, SELFPAY | LOC: CLAB 04:37 | PROVIDERS: ATTENDING PHYSICIAN Obstetrics & Gynecology; FAMILY PHYSICIAN Family Medicine | DX: N85.00 Endometrial hyperplasia, unspecified (principal) | CPT/HCPCS: 88305 ==

== ENCOUNTER → 2025-04-21 09:18 | Outpatient (REF) | payer MEDICARE, OTHER, SELFPAY | LOC: HWRAD 09:18 | PROVIDERS: ATTENDING PHYSICIAN Urology; FAMILY PHYSICIAN Family Medicine; REFERRING PHYSICIAN Obstetrics & Gynecology | DX: N31.9 Neuromuscular dysfunction of bladder, unspecified (principal); R39.89 Other symptoms and signs involving the genitourinary system; R39.198 Other difficulties with micturition; N39.41 Urge incontinence; M62.89 Other specified disorders of muscle; N95.8 Other specified menopausal and perimenopausal disorders | CPT/HCPCS: 76770 ==

== ENCOUNTER → 2025-05-06 09:50 | Outpatient (REF) | payer MEDICARE, OTHER, SELFPAY ==
[2025-05-06 12:04] LABS: Blood Urea Nitrogen 12 mg/dl (7-17); Calcium 9.6 mg/dl (8.4-10.2); Carbon Dioxide 28 mmol/L (22-30); Chloride 106 mmol/L (98-107); Glucose 94 mg/dl (70-99); Potassium 4.1 mmol/L (3.5-5.1); Sodium 141 mmol/L (135-145); eGFR > 60.00
== END ==
LOC: REG 09:50
PROVIDERS: ATTENDING PHYSICIAN Urology; FAMILY PHYSICIAN Family Medicine
DX: R93.89 Abnormal findings on diagnostic imaging of other specified body structures (principal); N28.9 Disorder of kidney and ureter, unspecified
CPT/HCPCS: 36415; 80048

== ENCOUNTER → 2025-05-09 11:41 | Outpatient (REF) | payer MEDICARE, OTHER, SELFPAY | LOC: RAD 11:41 | PROVIDERS: ATTENDING PHYSICIAN Urology; FAMILY PHYSICIAN Family Medicine | DX: R93.89 Abnormal findings on diagnostic imaging of other specified body structures (principal); N28.9 Disorder of kidney and ureter, unspecified | CPT/HCPCS: 74170; Q9967 ==

== ENCOUNTER 2025-07-04 07:29 | Emergency (ER) | payer MEDICARE, OTHER, SELFPAY ==
[2025-07-04 07:33] VITALS: BP 162/85
[2025-07-04 07:43] VITALS: BP 162/85
[2025-07-04 07:52] VITALS: BMI 39.2
[2025-07-04 08:00] VITALS: BP 151/75
[2025-07-04 08:17] LABS: Hematocrit 34.6 % (37.0-47.0); Hemoglobin 11.8 g/dL (12.0-16.0); Mean Corp Hgb Conc. 34.1 g/dL (33.0-37.0); Mean Corpuscular Volume 90.3 fL (81.0-99.0); Nucleated Red Blood Cells % 0 %; Platelet Count 321 10^3/uL (130-400); Red Cell Dist. Width 12.6 % (11.5-14.5); Urine Character Clear (Clear)
--- NOTE | 2025-07-04 08:23 | ED.GENMED ---
History of Present Illness
<Aden Rachel, DO - Last Filed: 07/04/25 08:37>
General
Chief Complaint: Cold/Flu/URI Symptoms
Time Seen by Provider: 07/04/25 07:37
<Lynda Tavarez MD, Resident - Last Filed: 07/04/25 10:21>
General
Source: patient
History of Present Illness
History of Present Illness:
Patient is a 74-year-old female with past medical history of multiple sclerosis, history of pulmonary embolism 2 years ago (provoked, treated with Coumadin, no longer on blood thinners), GERD, constipation, anxiety, who is here for mild shortness of
breath and palpitations.
She has been feeling lousy over the weekend, had constipation for which she used MiraLAX and had loose stools following that. Has been hydrating herself with Gatorade. She has history of multiple sclerosis and feels numbness on and off. She also
reports recent carpal tunnel release surgery on both wrists, 1 was done on April 29, 2025 and the left wrist surgery was done 3 weeks ago. She reports numbness of the left arm over the weekend which has now resolved. This morning, she checked her
blood pressure and was 169/98 and she had a heart rate of 101, she became anxious because she was afraid that she had developed blood clots and she called the EMS services.
She did take her blood pressure medications this morning and her oxygen saturations have been fine throughout. She has been moving around but is concerned that her symptoms were similar when she was here 2 years ago for a blood clot. On review of
symptoms, she reports on and off numbness, constipation, tiredness, fatigue and palpitations along with mild shortness of breath.
Past History
<Aden Rachel, DO - Last Filed: 07/04/25 08:37>
Past History
ED Past Medical History: GERD, HTN, Psychiatric (Anxiety, she has been prescribed medication to take it such as Cymbalta and Prozac but she does not like to take them so she takes nothing) and Other (MS)
ED Past Surgical History: Cholecystectomy, Orthopedic and Other (Sinus)
Social History
Tobacco: Non-smoker
Alcohol: None
Drug: None
Living: alone
Phy Exam
<Lynda Tavarez MD, Resident - Last Filed: 07/04/25 10:21>
General Physical Exam
General Presentation: well appearing and no apparent distress
General Skin: warm and dry
General Habitus: normal
Cardiovascular Exam
Cardiovascular Exam: regular rate/rhythm, no gallop, no murmur, normal peripheral pulses and tachycardia
Pulmonary Exam
Pulmonary Exam: lungs clear and no respiratory distress
Gastrointestinal Exam
Gastrointestinal Exam: normal bowel sounds, non tender and soft
Neurological Exam
Neurological Exam: alert and oriented x3
Musculoskeletal Exam
Musculoskeletal Exam: full ROM
Skin Exam
Skin Exam: normal color and warm/dry
Psychiatric Exam
Psychiatric Exam: normal mood/affect
Course
<Aden Rachel, DO - Last Filed: 07/04/25 08:37>
Orders/Labs/Results
Orders:
Orders
07/04/25 08:04
CMP [Comprehensive Metabolic Panel] Urgent
COVID-19 Antigen Urgent
Source: Nasal Swab
Complete Blood Count/With Diff Urgent
Urinalysis Reflex To Culture Urgent
Date Specimen was Collected: 07/04/25
Time Specimen was Collected: 07:56
Urine Microscopic Reflex Cult Urgent
INF RAPID [Influenza A+B Rapid Molecular] Urgent
MATTHEW Source: Nasal Swab
Specimen Description:
07/04/25 08:20
Troponin I Urgent
07/04/25 08:[address] [CT Chest PE Study] Urgent
Comment:
Reason For Exam: tachycardia,mild sob,hx of PE
07/04/25 08:37
0.9% Sodium Chloride 500 ml [Nss] 500 ml IV BOLUS
07/04/25 08:45
Add On- LAB Urgent
Tests Added?: troponin
Abnormal Lab Results
07/04/25
08:04
RBC 3.83 L 10^6/uL
(4.20-5.40)
Hgb 11.8 L g/dL
(12.0-16.0)
Hct 34.6 L %
(37.0-47.0)
Ur Occult Blood Reflex 2+ A
(Negative)
Urine Bacteria (Reflex) Few A
(Negative)
Urine Albumin (Reflex) 1+ A
(Neg - Trace)
07/04/25 08:04
07/04/25 08:04
Vital Signs
Initial and Last Documented VS:
Initial Vital Signs
Temp Pulse Resp BP Pulse Ox
98.1 F 100 16 162/85 99
07/04/25 07:33 07/04/25 07:33 07/04/25 07:33 07/04/25 07:33 07/04/25 07:33
Last Documented Vital Signs
Temp Pulse Resp BP Pulse Ox
98.1 F 94 14 151/75 98
07/04/25 07:33 07/04/25 08:00 07/04/25 08:00 07/04/25 08:00 07/04/25 08:24
<Lynda Tavarez MD, Resident - Last Filed: 07/04/25 10:21>
Orders/Labs/Results
Orders:
Orders
07/04/25 08:04
CMP [Comprehensive Metabolic Panel] Urgent
COVID-19 Antigen Urgent
Source: Nasal Swab
Complete Blood Count/With Diff Urgent
Urinalysis Reflex To Culture Urgent
Date Specimen was Collected: 07/04/25
Time Specimen was Collected: 07:56
Urine Microscopic Reflex Cult Urgent
INF RAPID [Influenza A+B Rapid Molecular] Urgent
MATTHEW Source: Nasal Swab
Specimen Description:
07/04/25 08:20
Troponin I Urgent
07/04/25 08:[address] [CT Chest PE Study] Urgent
Comment:
Reason For Exam: tachycardia,mild sob,hx of PE
07/04/25 08:37
0.9% Sodium Chloride 500 ml [Nss] 500 ml IV BOLUS
07/04/25 08:45
Add On- LAB Urgent
Tests Added?: troponin
Abnormal Lab Results
07/04/25
08:04
RBC 3.83 L 10^6/uL
(4.20-5.40)
Hgb 11.8 L g/dL
(12.0-16.0)
Hct 34.6 L %
(37.0-47.0)
Ur Occult Blood Reflex 2+ A
(Negative)
Urine Bacteria (Reflex) Few A
(Negative)
Urine Albumin (Reflex) 1+ A
(Neg - Trace)
07/04/25 08:04
07/04/25 08:04
Vital Signs
Initial and Last Documented VS:
Initial Vital Signs
Temp Pulse Resp BP Pulse Ox
98.1 F 100 16 162/85 99
07/04/25 07:33 07/04/25 07:33 07/04/25 07:33 07/04/25 07:33 07/04/25 07:33
Last Documented Vital Signs
Temp Pulse Resp BP Pulse Ox
98.1 F 94 14 151/75 98
07/04/25 07:33 07/04/25 08:00 07/04/25 08:00 07/04/25 08:00 07/04/25 08:24
<Lynda Tavarez MD, Resident - Last Filed: 07/04/25 10:21>
MDM/Problems Addressed
Differential Diagnosis Includes:
Pulmonary embolism
Anxiety
ACS
COVID/flu
MDM/Problems Addressed:
CT PE study done in the ER-mild basilar subsegmental atelectasis, no PE and clear lungs
CBC and CMP-No concerning findings
COVID and flu swab-Negative
EKG Shows no acute ST-T changes and troponin levels within normal limits
Reassured the patient
Plan to discharge and follow-up with PCP on outpatient basis
Encouraged to come back to ER in case of worsening or worrisome symptoms
<Aden Rachel, DO - Last Filed: 07/04/25 08:37>
*Pulse Oximetry
SaO2: 98
Oxygen Mode of Delivery: Room air
<Lynda Tavarez MD, Resident - Last Filed: 07/04/25 10:21>
*Pulse Oximetry
Patient hypoxic: no
*Critical Care Note
Total Time (30-74mins, 75-104mins- exclusive of procedures): Not Applicable
ED Attending Note
<Aden Rachel DO - Last Filed: 07/04/25 08:37>
ED Attending Note
Patient seen and examined by attending physician: Yes
I performed the substantive portion of visit, reviewed & personally made and approve the management plan that is documented in note by myself or DRE.: Yes
ED Attending Note:
I evaluated the patient at bedside. The patient initially told me she was most concerned about her blood pressure elevation with systolic of 169 and the fact that she was increasingly tachycardic with initial heart rate at home of 101 that
increased to 119. Currently, as of 8:30 AM, her heart rate is 91. She does have a history of PE and she was concerned for the possibility of PE despite not having any significant shortness of breath as she has had a PE in the past and was
tachycardic at that time. Will obtain CTA today. She does have a history of MS not currently being treated with some resolving paresthesias.
-
Portions of this chart may have been created with voice recognition software.� Occasional wrong word or��sound alike� substitutions may have occurred due to the inherent limitations of voice recognition software.
Discharge Plan
Departure
Prescriptions:
No Action
artificial tear([id number]) [GenTeal Tears Moderate] 15 ML drops
1 drp BOTH EYES DAILYPRN PRN (Reason: dry eyes)
ascorbic acid (vitamin C) [Vitamin C] 500 MG tablet
500 mg PO QPM
lisinopril 20 mg Tablet
20 mg PO BID Qty: 60 0RF
Theragen Tablet
1 tab PO QPM
amlodipine 2.5 mg Tablet
5 mg PO HS
acetaminophen [Tylenol Arthritis Pain] 650 mg Tablet Extended Release
1,300 mg PO Q12H
alprazolam 0.25 mg Tablet
0.25 mg PO HSPRN PRN (Reason: anxiety)
meclizine 25 mg Tablet
25 mg PO DAILYPRN PRN (Reason: vertigo)
omeprazole magnesium [Prilosec OTC] 20 mg Tablet,Delayed Release (Dr/Ec)
20 mg PO DAILY
Visbiome 112.5 billion cell Capsule
1 cap PO QPM
cholecalciferol (vitamin D3) [Vitamin D3] 50 mcg (2,000 unit) Tablet
50 mcg PO DAILY
Retaine MGD (PF) 0.5-0.5 % Dropperette
1 drp ophthalmic (eye) BID
Rx Instructions:
both eyes
famotidine 20 MG tablet
20 mg PO QPM
polyethylene glycol 3350 [Miralax] 17 gram Powder In Packet
17 g PO PRN PRN (Reason: constipation)
Referrals:
Ester Maher MD [Family Provider, Family Practice]
Interventions
Interventions:
*Risk Screen - Suicide Last Done: 07/04/25 07:33
*General Assessment Last Done: 07/04/25 07:33
*Neglect/Abuse Screening Last Done: 07/04/25 07:33
*ED COVID-19 Vaccine History Last Done: 07/04/25 07:33
*ED Influenza Vaccine History Last Done: 07/04/25 07:33
[facility] Fall Risk Assessment Tool Last Done: 07/04/25 07:52
ED- Pulmonary Assessment Last Done: 07/04/25 07:52
Discharge Date and Time
Print Language: [place]
[2025-07-04 08:29] LABS: Urine Red Blood Cell 0-2 /HPF (0-2); Urine White Cell 0-2 /HPF (0-5)
[2025-07-04 08:32] LABS: COVID-19 Antigen Negative (Negative)
[2025-07-04 08:42] LABS: ALT (SGPT) 33 U/L (0-35); AST (SGOT) 24 U/L (14-36); Albumin 4.5 g/dl (3.5-5.0); Alkaline Phosphatase 108 U/L (38-126); Blood Urea Nitrogen 14 mg/dl (7-17); Calcium 9.8 mg/dl (8.4-10.2); Carbon Dioxide 24 mmol/L (22-30); Chloride 103 mmol/L (98-107); Estimated Creatinine Clearance 59 ml/min; Glucose 90 mg/dl (70-99); Potassium 4.2 mmol/L (3.5-5.1); Sodium 137 mmol/L (135-145); Total Protein 7.1 g/dl (6.3-8.2); eGFR > 60.00
[2025-07-04] MEDS: NSS 500 IV (09:09)
[2025-07-04 09:54] LABS: Troponin I < 0.012 ng/ml
[2025-07-04 10:47] VITALS: BP 145/75
--- NOTE | 2025-07-04 11:27 | EDRN ---
Reviewed discharge instructions with patient. Verbalized understanding. Ambulated with steady gait to the lobby.
[2025-07-04 11:29] VITALS: BP 145/75
== END 2025-07-04 11:25 | disposition home or self-care (01) ==
LOC: EMR 07:29
PROVIDERS: Student in an Organized Health Care Education/Training Program; EMERGENCY PHYSICIAN Emergency Medicine; FAMILY PHYSICIAN Family Medicine
DX: F41.9 Anxiety disorder, unspecified (principal); R00.0 Tachycardia, unspecified; R06.02 Shortness of breath; I10 Essential (primary) hypertension; G35.D Multiple sclerosis, unspecified; K21.9 Gastro-esophageal reflux disease without esophagitis; Z86.711 Personal history of pulmonary embolism
CPT/HCPCS: 99284; 96360; 71275; 80053; 81003; 81015; 84484; 85025; 87502; 87811; Q9967

== ENCOUNTER → 2025-07-12 12:05 | Outpatient (REF) | payer MEDICARE, OTHER, SELFPAY ==
[2025-07-12 13:14] LABS: Hematocrit 36.0 % (37.0-47.0); Hemoglobin 12.0 g/dL (12.0-16.0); Mean Corp Hgb Conc. 33.3 g/dL (33.0-37.0); Mean Corpuscular Volume 91.8 fL (81.0-99.0); Nucleated Red Blood Cells % 0 %; Platelet Count 379 10^3/uL (130-400); Red Cell Dist. Width 12.6 % (11.5-14.5)
[2025-07-12 13:36] LABS: Iron 84 ug/dl (37-170)
[2025-07-12 13:45] LABS: Total Iron Binding Capacity 409 ug/dl (265-497)
[2025-07-12 15:17] LABS: Ferritin 55.0 ng/ml (11.1-264.0)
== END ==
LOC: REG 12:05
PROVIDERS: ATTENDING PHYSICIAN Internal Medicine Hematology & Oncology; FAMILY PHYSICIAN Family Medicine
DX: R76.0 Raised antibody titer (principal); D68.69 Other thrombophilia; I26.99 Other pulmonary embolism without acute cor pulmonale; I87.2 Venous insufficiency (chronic) (peripheral)
CPT/HCPCS: 82728; 83540; 83550; 85025

== ENCOUNTER → 2025-07-19 07:09 | Outpatient (REF) | payer MEDICARE, OTHER, SELFPAY ==
[2025-07-19 09:05] LABS: Hematocrit 35.8 % (37.0-47.0); Hemoglobin 12.3 g/dL (12.0-16.0); Mean Corp Hgb Conc. 34.4 g/dL (33.0-37.0); Mean Corpuscular Volume 94.0 fL (81.0-99.0); Nucleated Red Blood Cells % 0 %; Platelet Count 334 10^3/uL (130-400); Red Cell Dist. Width 12.8 % (11.5-14.5)
[2025-07-19 09:39] LABS: Blood Urea Nitrogen 14 mg/dl (7-17); Calcium 9.7 mg/dl (8.4-10.2); Carbon Dioxide 24 mmol/L (22-30); Chloride 102 mmol/L (98-107); Glucose 81 mg/dl (70-99); Potassium 4.4 mmol/L (3.5-5.1); Sodium 137 mmol/L (135-145); eGFR > 60.00
== END ==
LOC: SDSPAT 07:09
PROVIDERS: ATTENDING PHYSICIAN Orthopaedic Surgery; FAMILY PHYSICIAN Family Medicine; OTHER PHYSICIAN Internal Medicine Cardiovascular Disease
DX: M75.121 Complete rotator cuff tear or rupture of right shoulder, not specified as traumatic (principal); Z01.818 Encounter for other preprocedural examination
CPT/HCPCS: 80048; 85025; 93005

== ENCOUNTER 2025-07-20 06:53 | Outpatient (RCR) | payer MEDICARE, OTHER, SELFPAY | END 2025-07-20 23:59 | disposition home or self-care (01) | LOC: RPT 06:53 | PROVIDERS: ATTENDING PHYSICIAN Urology; FAMILY PHYSICIAN Family Medicine | DX: M62.89 Other specified disorders of muscle (principal); N31.9 Neuromuscular dysfunction of bladder, unspecified; N39.42 Incontinence without sensory awareness; R39.15 Urgency of urination; R33.9 Retention of urine, unspecified; Z73.6 Limitation of activities due to disability; K59.00 Constipation, unspecified; G35.D Multiple sclerosis, unspecified; N32.81 Overactive bladder; R10.20 Pelvic and perineal pain unspecified side | CPT/HCPCS: 97110; 97161; 97530 ==